=== PATIENT | male | born 1990 | race African-American/Black ===

== ENCOUNTER 2021-02-03 16:50 | Emergency (ER) | payer MEDICAID, SELFPAY ==
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
[2021-02-03 17:21] VITALS: BP 121/77; PULSE 116; RESP 16; TEMP 37.3; O2SAT 97; BMI 22.7
[2021-02-03] MEDS: 0.9 % Sodium Chloride 1,000 ML 999 ML IV (19:01)
[2021-02-03 19:02] LABS: MANUAL DIFF FLAG NO
[2021-02-03 19:05] LABS: Basophils Percent Auto 0.2 % (0-2); Eosinophils Absolute Auto 0.1 X10*3/uL (0.0-0.4); Eosinophils Percent Auto 0.8 % (0-4); Hemoglobin 13.8 g/dl (14.0-18.0); Imm Gran Abs Auto 0.02 X10*3/uL (0.00-0.03); Imm Gran Pct Auto 0.2 % (0.0-0.4); Lymphocytes Absolute Auto 1.7 X10*3/uL (1.2-4.9); Lymphocytes Percent Auto 17.5 % (20-40); Mean Corpuscular HGB Conc 33.7 g/dl (31.0-36.0); Mean Corpuscular Hemoglobin 31.8 pg (27.0-33.0); Mean Corpuscular Volume 94.5 fL (80-98); Mean Platelet Volume 9.4 fL (9.4-12.4); Monocytes Absolute Auto 0.5 X10*3/uL (0.1-1.2); Monocytes Percent Auto 4.9 % (2-11); Neutrophils Absolute Auto 7.6 X10*3/uL (2.0-8.3); Neutrophils Percent Auto 76.4 % (45-73); Platelet Count 323 X10*3/uL (160-400); Red Blood Count 4.34 X10*6/uL (4.60-5.80); White Blood Count 9.9 X10*3/uL (4.8-10.8)
[2021-02-03 19:12] LABS: INTERNATIONAL NORM RATIO 1.2 (0.9-1.1)
[2021-02-03 19:31] LABS: Ethanol < 10 mg/dL
[2021-02-03 19:32] LABS: Alanine Aminotransferase 19 U/L (0-40); Albumin Level 4.6 g/dL (3.5-5.0); Alkaline Phosphatase 50 U/L (39-117); Anion Gap 13 (12-20); Aspartate Amino Transferase 24 U/L (5-37); Bilirubin Total 1.1 mg/dL (0.0-1.0); Blood Urea Nitrogen 9 mg/dL (9-16); Calcium 9.9 mg/dL (8.4-10.2); Carbon Dioxide 25 mmol/L (22-29); Chloride 106 mmol/L (96-108); Creatinine Clr Calc Pharmacy 101.6; Estimated Glomerular Filt Rate > 60; Glucose Random 92 mg/dL (60-115); Potassium 3.6 mmol/L (3.3-5.1); Sodium 140 mmol/L (135-145); Total Protein 7.2 g/dL (6.5-8.0)
[2021-02-03] MEDS: iohexoL 350 MG/ML 100 ML INFUS..BTL IV (20:23)
[2021-02-03 20:32] VITALS: BP 121/74; PULSE 88; RESP 14; O2SAT 100
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
== END 2021-02-03 23:04 | disposition home or self-care (01) ==
PROVIDERS: Nurse Practitioner Primary Care; Emergency Provider Internal Medicine
DX: S06.0X1A Concussion with loss of consciousness of 30 minutes or less, initial encounter (principal); S01.111A Laceration without foreign body of right eyelid and periocular area, initial encounter; S00.83XA Contusion of other part of head, initial encounter; Y04.2XXA Assault by strike against or bumped into by another person, initial encounter; M25.571 Pain in right ankle and joints of right foot; B20 Human immunodeficiency virus [HIV] disease; R93.5 Abnormal findings on diagnostic imaging of other abdominal regions, including retroperitoneum; K56.1 Intussusception; F12.90 Cannabis use, unspecified, uncomplicated; Y93.9 Activity, unspecified; Y92.9 Unspecified place or not applicable; Y99.9 Unspecified external cause status
CPT/HCPCS: 12011; 36415; 70450; 70486; 71260; 73600; 74177; 80053; 80320; 85025; 85610; 85730; 96360; 99284; Q9967

== ENCOUNTER 2021-02-23 20:39 | Emergency (ER) | payer MEDICAID, SELFPAY ==
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
[2021-02-23 20:41] VITALS: BP 142/93; PULSE 102; RESP 22; TEMP 36.7; O2SAT 100; BMI 23.1
[2021-02-23 21:21] LABS: MANUAL DIFF FLAG NO
[2021-02-23 21:23] LABS: Basophils Percent Auto 0.1 % (0-2); Eosinophils Percent Auto 0.1 % (0-4); Hematocrit 40.1 % (42-52); Hemoglobin 13.8 g/dl (14.0-18.0); Imm Gran Abs Auto 0.04 X10*3/uL (0.00-0.03); Imm Gran Pct Auto 0.3 % (0.0-0.4); Lymphocytes Absolute Auto 0.9 X10*3/uL (1.2-4.9); Lymphocytes Percent Auto 6.1 % (20-40); Mean Corpuscular HGB Conc 34.4 g/dl (31.0-36.0); Mean Corpuscular Hemoglobin 32.3 pg (27.0-33.0); Mean Corpuscular Volume 93.9 fL (80-98); Mean Platelet Volume 9.8 fL (9.4-12.4); Monocytes Absolute Auto 0.8 X10*3/uL (0.1-1.2); Monocytes Percent Auto 5.6 % (2-11); Neutrophils Absolute Auto 12.4 X10*3/uL (2.0-8.3); Neutrophils Percent Auto 87.8 % (45-73); Platelet Count 270 X10*3/uL (160-400); Red Blood Count 4.27 X10*6/uL (4.60-5.80); White Blood Count 14.2 X10*3/uL (4.8-10.8)
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
[2021-02-23 21:53] LABS: Ethanol < 10 mg/dL
[2021-02-23 21:58] LABS: Alanine Aminotransferase 19 U/L (0-40); Albumin Level 4.7 g/dL (3.5-5.0); Alkaline Phosphatase 53 U/L (39-117); Anion Gap 17 (12-20); Aspartate Amino Transferase 26 U/L (5-37); Bilirubin Total 1.7 mg/dL (0.0-1.0); Blood Urea Nitrogen 14 mg/dL (9-16); Calcium 9.5 mg/dL (8.4-10.2); Carbon Dioxide 22 mmol/L (22-29); Chloride 104 mmol/L (96-108); Estimated Glomerular Filt Rate > 60; Glucose Random 77 mg/dL (60-115); Potassium 3.7 mmol/L (3.3-5.1); Sodium 139 mmol/L (135-145); Total Protein 7.5 g/dL (6.5-8.0)
[2021-02-23 22:00] VITALS: BP 131/78; PULSE 71; RESP 20; TEMP 36.7; O2SAT 99
[2021-02-23] MEDS: Ketorolac Tromethamine 15 MG/ML VIAL IVPUSH (22:17)
[2021-02-23] MEDS: Acetaminophen 325 MG TABLET 975 MG PO (22:17)
[2021-02-23 22:18] LABS: INTERNATIONAL NORM RATIO 1.1 (0.9-1.1); Prothrombin Time 13.6 SEC (10.8-13.0)
[2021-02-23] MEDS: 0.9 % Sodium Chloride 1,000 ML 999 ML IV (22:20)
[2021-02-23 22:21] LABS: Partial Thromboplastin Time 28.7 SEC (24.1-38.0)
[2021-02-23] MEDS: iohexoL 350 MG/ML 100 ML INFUS..BTL 85 ML IV (23:36)
[2021-02-23] MEDS: fentaNYL citrate/PF 100 MCG/2 ML VIAL 25 MCG IVPUSH (23:52)
[2021-02-23 23:53] VITALS: BP 128/71; PULSE 88; RESP 18; O2SAT 99
[2021-02-24 01:27] LABS: Glucose Urine UA NEG (NEG); Leukocyte Esterase Urine NEG (NEG); Nitrite Urine NEG (NEG); Specific Gravity - Urine <= 1.005 (1.005-1.025); Urine Blood NEG (NEG); Urine Ketones 15 MG/DL (NEG); Urine Protein NEG (NEG-TRACE)
[2021-02-24 01:28] LABS: Appearance Urine CLEAR; Color Urine YELLOW
[2021-02-24 01:40] LABS: Amphetamine Screen Urine Not Detected (Not Detect); Barbiturates, Urine Not Detected (Not Detect); Benzodiazepines Screen Urine Not Detected (Not Detect); Cannabinoid Screen Urine POSITIVE (Not Detect); Cocaine Screen Urine POSITIVE (Not Detect); Opiate Screen Urine Not Detected (Not Detect); Phencyclidine Screen Urine Not Detected (Not Detect)
[2021-02-24 02:00] VITALS: BP 124/64; PULSE 64; RESP 18; O2SAT 100
== END 2021-02-24 03:56 | disposition home or self-care (01) ==
PROVIDERS: Emergency Provider Student in an Organized Health Care Education/Training Program; PCP Nurse Practitioner Family
DX: S02.2XXA Fracture of nasal bones, initial encounter for closed fracture (principal); M54.2 Cervicalgia; G44.309 Post-traumatic headache, unspecified, not intractable; M79.642 Pain in left hand; M79.641 Pain in right hand; M54.6 Pain in thoracic spine; R10.9 Unspecified abdominal pain; F17.200 Nicotine dependence, unspecified, uncomplicated; F12.90 Cannabis use, unspecified, uncomplicated; Y04.8XXA Assault by other bodily force, initial encounter; Y93.9 Activity, unspecified; Y92.9 Unspecified place or not applicable; Y99.9 Unspecified external cause status; Z71.6 Tobacco abuse counseling; Z79.899 Other long term (current) drug therapy
CPT/HCPCS: 36415; 70450; 70486; 71260; 72125; 73030; 73080; 73110; 73130; 74177; 80053; 80307; 80320; 81003; 85025; 85610; 85730; 86850; 86900; 86901; 90471; 96365; 96372; 96375; 99284; J1885; J3010; Q9967